=== PATIENT | female | born 1980 | race African-American/Black ===

== ENCOUNTER 2016-05-27 21:00 | Emergency (ER) | payer OTHER ==
--- NOTE | ~2016-05-27 | CR63 ---
[facility] A Service of [facility] RADIOLOGY TEXT RESULTS PATIENT: ROBERT SCHNEIDER LOCATION: SED : 82 UNIT #: [id number] AGE: [address]: Enid Redd SEX: F ORDER DR: [id number] [place] [id number] E MR#: [id number] Acc #: [id number] NAME: ROBERT SCHNEIDER : 1980 SEX: F STUDY DATE/TIME: 05/27/2016 21:32 UNIT: SED ROOM: STUDY DESCRIPTION: CR Chest 2 View Attending Physician: Enid Redd Pa-C Ordering Physician: Harpreet Not Listed Primary Care Physician: Reinaldo Samson M.D. MEDICAL IMAGING REPORT This report is preliminary unless electronic signature is present. EXAM Chest x-ray, 05/27/2016. HISTORY 36-year-old female in the ED complaining of new onset cough, congestion, fever, body aches, and chest pain beginning earlier this morning. TECHNIQUE PA and lateral upright chest series. FINDINGS The examination is negative. Heart size and pulmonary vascularity are normal. The lungs are expanded and clear. No visible pulmonary infiltrate or pleural effusion. No change since 07/18/2013. IMPRESSION Negative chest; no change since 07/18/2013. Dictated by... Mahamed Leija M.D. THIS IS AN ELECTRONICALLY VERIFIED REPORT Mahamed Leija M.D. at 05/28/2016 10:05 PM MARGARITO/srikanth TD: 05/28/2016 12:30 JOB #: [id number] MEDICAL IMAGING REPORT [facility] A Service [facility] RADIOLOGY TEXT RESULTS PATIENT: ROBERT SCHNEIDER LOCATION: SED : 82 UNIT #: [id number] AGE: [address]: Enid Redd SEX: F ORDER DR: Page 1 of 1
[~2016-05-27 21:00] MED LIST: ACYCLOVIR PO; ALBUTEROL17 GM INH; AMOXICILLIN PO; BACTRIM DS TABL1 TA1 PO; BACTRIM DS TABL1 TAB PO; BACTROBAN15 GM TOP; DIOVAN HCT 80/11 TAB PO; FLEXERIL PO; FLEXERIL10 MG PO; IBUPROFEN PO; IBUPROFEN800 MG PO; KEFLEX500 M2 PO; LORTAB 2.5/5001 TAB PO; MEDROL DOSEPAK4 MG PO; MEDROL PO; METFORMIN; METFORMIN PO; NAPROSYN500 MG PO; NO MEDICATIONS; NORCO 5MG-325MG PO; PERCOCET 5-3251 TAB PO; PHENERGAN PR; PRENATAL MULITV1 TAB PO; PREVPAC PA1 COMB.PKG PO; PROAIR HFA8.5 GM; PROTONIX PO; ROBITUSSIN ALL118 ML PO; ROBITUSSIN100 MG/51 PO; TYLENOL #3 PO; VALTREX PO; VICODIN 5/1 TAB 5/50 PO; VICODIN 5/500 T1 TAB PO; ZITHROMAX PO; ZOFRAN ODT4 MG PO; ZOFRAN PO
[2016-05-27] MEDS ORDERED: NO MEDICATIONS (21:03)
[2016-05-27 21:14] LABS: INFLUENZA A NEG (NEG); INFLUENZA B NEG (NEG)
== END 2016-05-27 22:15 | disposition home or self-care (01) ==
LOC: SED 21:00
PROVIDERS: Physician Assistant
DX: B34.9 Viral infection, unspecified (principal); E11.9 Type 2 diabetes mellitus without complications
CPT/HCPCS: 71020; 87804; 99283